=== PATIENT | male | born 1985 | race Caucasian/White ===

== ENCOUNTER 2019-02-10 23:30 | Day surgery (SDC) | payer OTHER ==
[2019-02-10] MEDS ORDERED: Ondansetron 4 MG/2 ML SDV IVPUSH ONE (23:39)
[2019-02-10] MEDS ORDERED: Sodium Chloride 0.9% 1,000 ML IV ONE (23:39)
[2019-02-10] MEDS ORDERED: Ketorolac 30 MG/ML SDV IVPUSH ONE (23:45)
--- NOTE | 2019-02-10 23:47 | EDM.PDOC ---
ED HPI GENERAL MEDICAL PROBLEM - General Chief Complaint: Abdominal Pain Stated Complaint: ABD PAIN Time Seen by Provider: 02/10/19 23:47 Source of Information: Reports: Patient - History of Present Illness INITIAL COMMENTS - FREE TEXT/NARRATIVE: HISTORY AND PHYSICAL: History of present illness: [A shunt presents with right lower quadrant pain for 36 hours no nausea vomiting chills sweats pain is 5 out of 10 nonradiating] Review of systems: As per history of present illness and below otherwise all systems reviewed and negative. Past medical history: As per history of present illness and as reviewed below otherwise noncontributory. Surgical history: As per history of present illness and as reviewed below otherwise noncontributory. Social history: No reported history of drug or alcohol abuse. Family history: As per history of present illness and as reviewed below otherwise noncontributory. Physical exam: HEENT: Atraumatic, normocephalic, pupils reactive, negative for conjunctival pallor or scleral icterus, mucous membranes moist, throat clear, neck supple, nontender, trachea midline. Lungs: Clear to auscultation, breath sounds equal bilaterally, chest nontender. Heart: S1S2, regular, negative for clicks, rubs, or JVD. Abdomen: Soft, nondistended, tender in right lower quadrant with guarding no rebound. Negative for masses or hepatosplenomegaly. Negative for costovertebral tenderness. Pelvis: Stable nontender. Genitourinary: Deferred. Rectal: Deferred. Extremities: Atraumatic, negative for cords or calf pain. Neurovascular unremarkable. Neuro: Awake, alert, oriented. Cranial nerves II through XII unremarkable. Cerebellum unremarkable. Motor and sensory unremarkable throughout. Exam nonfocal. Diagnostics: [EC CMP UA ] Therapeutics: [1 g Rocephin morphine 2 mg IV ] Impression: appendicitis definittive disposition and diagnosis as appropriate pending reevaluation and review of above. Right Lower Abdominal Pain Score (Numeric/FACES): 5 - Related Data Allergies Allergy/AdvReac Type Severity Reaction Status Date / Time No Known Allergies Allergy Verified 02/10/19 23:41 Home Meds: Home Meds . [No Known Home Meds] 02/10/19 [History] ED ROS GENERAL - Review of Systems Review Of Systems: See Below ED EXAM, GENERAL - Physical Exam Exam: See Below Course - Vital Signs Last Recorded V/S: Last Vital Signs Temp 98.3 F 02/10/19 23:42 Pulse 90 02/10/19 23:42 Resp 16 02/10/19 23:42 BP 164/92 H 02/10/19 23:42 Pulse Ox 98 02/10/19 23:42 - Orders/Labs/Meds Orders: Active Orders 24 hr Category Date Time Status UA RFX LEI AND CULT IF INDIC [URIN] Stat Lab 02/10/19 23:39 Ordered Labs: Laboratory Tests 02/10/19 02/10/19 Range/Units 23:50 23:50 WBC 12.13 H (4.0-11.0) K/uL RBC 5.07 (4.50-5.90) M/uL Hgb 14.8 (13.0-17.0) g/dL Hct 43.7 (38.0-50.0) % MCV 86.2 (80.0-98.0) fL MCH 29.2 (27.0-32.0) pg MCHC 33.9 (31.0-37.0) g/dL RDW Std Deviation 38.3 (28.0-62.0) fl RDW Coeff of Celso 12 (11.0-15.0) % Plt Count 194 (150-400) K/uL MPV 9.80 (7.40-12.00) fL Neut % (Auto) 68.6 (48.0-80.0) % Lymph % (Auto) 21.4 (16.0-40.0) % Ocean % (Auto) 8.4 (0.0-15.0) % Eos % (Auto) 1.4 (0.0-7.0) % Baso % (Auto) 0.2 (0.0-1.5) % Neut # (Auto) 8.3 H (1.4-5.7) K/uL Lymph # (Auto) 2.6 H (0.6-2.4) K/uL Ocean # (Auto) 1.0 H (0.0-0.8) K/uL Eos # (Auto) 0.2 (0.0-0.7) K/uL Baso # (Auto) 0.0 (0.0-0.1) K/uL Nucleated RBC % 0.0 /100WBC Nucleated RBCs # 0 K/uL Sodium 142 (136-148) mmol/L Potassium 3.9 (3.5-5.1) mmol/L Chloride 105 (98-107) mmol/L Carbon Dioxide 27.1 (21.0-32.0) mmol/L BUN 15 (7.0-18.0) mg/dL Creatinine 1.3 (0.8-1.3) mg/dL Est Cr Clr Drug Dosing 84.47 mL/min Estimated GFR (MDRD) > 60.0 ml/min Glucose 93 (74-106) mg/dL Calcium 9.1 (8.5-10.1) mg/dL Total Bilirubin 0.8 (0.2-1.0) mg/dL AST 27 (15-37) IU/L ALT 24 (14-63) IU/L Alkaline Phosphatase 81 (46-116) U/L Total Protein 8.0 (6.4-8.2) g/dL Albumin 4.4 (3.4-5.0) g/dL Globulin 3.6 (2.6-4.0) g/dL Albumin/Globulin Ratio 1.2 (0.9-1.6) Lipase 113 (73-393) U/L Meds: Medications Discontinued Medications Generic Name Dose Route Start Last Admin Trade Name Freq PRN Reason Stop Dose Admin Sodium Chloride 1,000 mls @ 999 mls/hr 02/10/19 23:39 02/10/19 23:50 Normal Saline IV 02/11/19 00:39 999 mls/hr STAT ONE Administration Iopamidol 100 ml 02/11/19 00:57 02/11/19 01:20 Isovue-370 (76%) IVPUSH 02/11/19 00:58 100 ml ONETIME ONE Administration Ketorolac Tromethamine 30 mg 02/10/19 23:45 02/11/19 00:00 Toradol IVPUSH 02/10/19 23:46 30 mg ONETIME ONE Administration Ondansetron HCl 8 mg 02/10/19 23:39 02/11/19 00:42 Zofran IVPUSH 02/10/19 23:40 Not Given ONETIME ONE Departure - Departure Time of Disposition: 01:46 Disposition: Refer to Observation Condition: Fair Clinical Impression: Acute appendicitis - Discharge Information Referrals: PCP,None [Primary Care Provider] - Forms: ED Department Discharge - My Orders Last 24 Hours: My Active Orders 02/10/19 23:39 UA RFX LEI AND CULT IF INDIC [URIN] Stat - Assessment/Plan Last 24 Hours: My Active Orders 02/10/19 23:39 UA RFX LEI AND CULT IF INDIC [URIN] Stat
[2019-02-11 00:28] LABS: CHLORIDE,CL 105 mmol/L (98-107); SODIUM,NA 142 mmol/L (136-148)
[2019-02-11] MEDS ORDERED: Iopamidol 755 Mg/ML 100 ML Bottle IVPUSH ONE (00:57)
--- NOTE | 2019-02-11 01:34 | CT ---
INDICATION: Right lower quadrant abdomen pain. TECHNIQUE: CT abdomen and pelvis acquired with 100 cc Isovue 370 IV contrast. COMPARISON: None. FINDINGS: Lower chest: Unremarkable. Liver: Unremarkable. Normal in size and attenuation. No masses. Gallbladder and bile ducts: Unremarkable. No stones or inflammation. No biliary dilatation. Pancreas: Unremarkable. No mass or inflammation. Spleen: Unremarkable. Normal in size. No masses. Adrenal glands: Unremarkable. No nodules. Kidneys: Unremarkable. No masses, stones, or hydronephrosis. GI tract: Unremarkable. Normal in caliber. No sign of mass or inflammation. Appendix is inflamed and dilated up to 10 mm. No sign of perforation or abscess. Vasculature: Unremarkable. Mesenteric arteries are patent. Lymph nodes: No lymphadenopathy. Omentum/Peritoneum/Abdominal Wall: Unremarkable. No sign of mass or infiltration. No free air or significant free fluid. Pelvis: Unremarkable. Bones: Unremarkable for age. IMPRESSION: Acute appendicitis without complication. Please note that all CT scans at this facility use dose modulation, iterative reconstruction, and/or weight-based dosing when appropriate to reduce radiation dose to as low as reasonably achievable. Dictated by Jose G Rich MD @ Feb 11 2019 1:29AM Signed by Dr. Jose G Rich @ Feb 11 2019 1:34AM
[2019-02-11] MEDS ORDERED: cefTRIAXone 1 GM in Premix Bag 1 BAG IV ONE (01:46)
[2019-02-11] MEDS ORDERED: Morphine 2 MG/ML Syringe IVPUSH ONE (01:46)
[2019-02-11] MEDS ORDERED: cefOXitin 2 GM in Premix Bag 1 BAG IV ONE (01:51)
[2019-02-11] MEDS ORDERED: Lactated Ringers 1,000 ML IV ONE (01:52)
[2019-02-11] MEDS ORDERED: Bupivacaine 25%/EPINEPHrine/PF 30 ML ONE (02:10)
--- NOTE | 2019-02-11 02:29 | PCM.PREANE ---
Preanesthetic Assessment - Anesthesia/Transfusion/Family Hx Anesthesia History: No Prior Anesthesia Family History of Anesthesia Reaction: No Transfusion History: No Prior Transfusion(s) Intubation History: Unknown - Review of Systems General: No Symptoms Pulmonary: No Symptoms Cardiovascular: No Symptoms Gastrointestinal: No Symptoms Neurological: No Symptoms Other: Reports: None - Physical Assessment NPO Status Date: 02/10/19 NPO Status Time: 11:00 Pulse: 88 O2 Sat by Pulse Oximetry: 100 Respiratory Rate: 18 Blood Pressure: 122/74 Temperature: 38.6 C Vital Signs: Last Vital Signs Temp 36.9 C 02/11/19 01:59 Pulse 89 02/11/19 01:59 Resp 18 02/11/19 01:59 BP 153/89 H 02/11/19 01:59 Pulse Ox 100 02/11/19 01:59 Height: 1.8 m Weight: 83.915 kg ASA Class: 1E Mental Status: Alert & Oriented x3 Airway Class: Mallampati = 1 Dentition: Reports: Normal Dentition Thyro-Mental Finger Breadths: 3 Mouth Opening Finger Breadths: 3 ROM/Head Extension: Full Lungs: Clear to Auscultation Cardiovascular: Regular Rate - Lab Values: Laboratory Last Values WBC 12.13 K/uL (4.0-11.0) H 02/10/19 23:50 RBC 5.07 M/uL (4.50-5.90) 02/10/19 23:50 Hgb 14.8 g/dL (13.0-17.0) 02/10/19 23:50 Hct 43.7 % (38.0-50.0) 02/10/19 23:50 MCV 86.2 fL (80.0-98.0) 02/10/19 23:50 MCH 29.2 pg (27.0-32.0) 02/10/19 23:50 MCHC 33.9 g/dL (31.0-37.0) 02/10/19 23:50 RDW Std Deviation 38.3 fl (28.0-62.0) 02/10/19 23:50 RDW Coeff of Celso 12 % (11.0-15.0) 02/10/19 23:50 Plt Count 194 K/uL (150-400) 02/10/19 23:50 MPV 9.80 fL (7.40-12.00) 02/10/19 23:50 Neut % (Auto) 68.6 % (48.0-80.0) 02/10/19 23:50 Lymph % (Auto) 21.4 % (16.0-40.0) 02/10/19 23:50 [place] % (Auto) 8.4 % (0.0-15.0) 02/10/19 23:50 Eos % (Auto) 1.4 % (0.0-7.0) 02/10/19 23:50 Baso % (Auto) 0.2 % (0.0-1.5) 02/10/19 23:50 Neut # (Auto) 8.3 K/uL (1.4-5.7) H 02/10/19 23:50 Lymph # (Auto) 2.6 K/uL (0.6-2.4) H 02/10/19 23:50 [place] # (Auto) 1.0 K/uL (0.0-0.8) H 02/10/19 23:50 Eos # (Auto) 0.2 K/uL (0.0-0.7) 02/10/19 23:50 Baso # (Auto) 0.0 K/uL (0.0-0.1) 02/10/19 23:50 Nucleated RBC % 0.0 /100WBC 02/10/19 23:50 Nucleated RBCs # 0 K/uL 02/10/19 23:50 Sodium 142 mmol/L (136-148) 02/10/19 23:50 Potassium 3.9 mmol/L (3.5-5.1) 02/10/19 23:50 Chloride 105 mmol/L (98-107) 02/10/19 23:50 Carbon Dioxide 27.1 mmol/L (21.0-32.0) 02/10/19 23:50 BUN 15 mg/dL (7.0-18.0) 02/10/19 23:50 Creatinine 1.3 mg/dL (0.8-1.3) 02/10/19 23:50 Est Cr Clr Drug Dosing 84.47 mL/min 02/10/19 23:50 Estimated GFR (MDRD) > 60.0 ml/min 02/10/19 23:50 Glucose 93 mg/dL (74-106) 02/10/19 23:50 Calcium 9.1 mg/dL (8.5-10.1) 02/10/19 23:50 Total Bilirubin 0.8 mg/dL (0.2-1.0) 02/10/19 23:50 AST 27 IU/L (15-37) 02/10/19 23:50 ALT 24 IU/L (14-63) 02/10/19 23:50 Alkaline Phosphatase 81 U/L (46-116) 02/10/19 23:50 Total Protein 8.0 g/dL (6.4-8.2) 02/10/19 23:50 Albumin 4.4 g/dL (3.4-5.0) 02/10/19 23:50 Globulin 3.6 g/dL (2.6-4.0) 02/10/19 23:50 Albumin/Globulin Ratio 1.2 (0.9-1.6) 02/10/19 23:50 Lipase 113 U/L (73-393) 02/10/19 23:50 - Allergies Allergies/Adverse Reactions: Allergies Allergy/AdvReac Type Severity Reaction Status Date / Time No Known Allergies Allergy Verified 02/10/19 23:41 - Blood Blood Available: No - Anesthesia Plan Pre-Op Medication Ordered: None - Acknowledgements Anesthesia Type Planned: General Anesthesia Pt an Appropriate Candidate for the Planned Anesthesia: Yes Alternatives and Risks of Anesthesia Discussed w Pt/Guardian: Yes Pt/Guardian Understands and Agrees with Anesthesia Plan: Yes Additional Comments: Discussed. ? answered. Acceptable patient for GAET. PreAnesthesia Questionnaire Cardiovascular History: Reports: None Respiratory History: Reports: None Gastrointestinal History: Reports: None Genitourinary History: Reports: None Musculoskeletal History: Reports: None Neurological History: Reports: None Psychiatric History: Reports: None Hematologic History: Reports: None Oncologic (Cancer) History: Reports: None Dermatologic History: Reports: None - Infectious Disease History Infectious Disease History: Reports: Chicken Pox - Past Surgical History HEENT Surgical History: Reports: Oral Surgery - SUBSTANCE USE Smoking Status *Q: Never Smoker Recreational Drug Use History: No - HOME MEDS Home Medications: Home Meds . [No Known Home Meds] 02/10/19 [History] - CURRENT (IN HOUSE) MEDS Current Meds: Current Medications Lactated Ringer's (Ringers, Lactated) 1,000 mls @ 150 mls/hr IV .BOLUS ONE Stop: 02/11/19 08:31 Last Admin: 02/11/19 02:03 Dose: 150 mls/hr Discontinued Medications Sodium Chloride (Normal Saline) 1,000 mls @ 999 mls/hr IV STAT ONE Stop: 02/11/19 00:39 Last Admin: 02/10/19 23:50 Dose: 999 mls/hr Ceftriaxone Sodium/Dextrose 1 (gm/ Premix) 50 mls @ 100 mls/hr IV ONETIME ONE Stop: 02/11/19 02:15 Last Admin: 02/11/19 02:15 Dose: Not Given Cefoxitin Sodium 2 gm/ Premix 50 mls @ 100 mls/hr IV ONETIME ONE Stop: 02/11/19 02:20 Last Admin: 02/11/19 02:04 Dose: 100 mls/hr Bupivacaine HCl/Epinephrine Bitart (Sensorc Mpf 0.25%-Epi [id number]) Confirm Administered Dose 30 mls @ as directed .ROUTE .STK-MED ONE Stop: 02/11/19 02:11 Iopamidol (Isovue-370 (76%)) 100 ml IVPUSH ONETIME ONE Stop: 02/11/19 00:58 Last Admin: 02/11/19 01:20 Dose: 100 ml Ketorolac Tromethamine (Toradol) 30 mg IVPUSH ONETIME ONE Stop: 02/10/19 23:46 Last Admin: 02/11/19 00:00 Dose: 30 mg Morphine Sulfate (Morphine) 2 mg IVPUSH ONETIME ONE Stop: 02/11/19 01:47 Last Admin: 02/11/19 02:06 Dose: Not Given Ondansetron HCl (Zofran) 8 mg IVPUSH ONETIME ONE Stop: 02/10/19 23:40 Last Admin: 02/11/19 00:42 Dose: Not Given
[2019-02-11] MEDS ORDERED: Sugammadex Sodium 200 MG/2 ML VIAL ONE (02:30)
[2019-02-11] MEDS ORDERED: Glycopyrrolate 0.2 MG/ML SDV ONE (02:45)
[2019-02-11] MEDS ORDERED: Ketorolac 30 MG/ML SDV ONE (02:45)
[2019-02-11] MEDS ORDERED: Ondansetron 4 MG/2 ML SDV ONE (02:45)
[2019-02-11] MEDS ORDERED: Propofol 200 MG/20 ML SDV ONE (02:46)
[2019-02-11] MEDS ORDERED: Midazolam 1 MG/ML 2 ML SDV ONE (02:46)
[2019-02-11] MEDS ORDERED: fentaNYL 100 MCG/2 ML SDV ONE ×2 (02:46→03:50)
[2019-02-11] MEDS ORDERED: Rocuronium 100 MG/10 ML Syringe ONE (02:46)
[2019-02-11] MEDS ORDERED: Morphine 10 MG/ML Syringe ONE (02:47)
[2019-02-11] MEDS ORDERED: Desflurane 240 ML Bottle ONE (04:33)
--- NOTE | 2019-02-11 04:49 | PCM.POSTAN ---
POST ANESTHESIA ASSESSMENT - MENTAL STATUS Mental Status: Alert - VITAL SIGNS Pulse Rate: 68 SaO2: 99 Resp Rate: 16 Blood Pressure: 140/80 - RESPIRATORY Respiratory Status: Respiratory Rate WNL - CARDIOVASCULAR CV Status: Pulse Rate WNL - GASTROINTESTINAL GI Status: No Symptoms - PAIN Pain Score: 0 - POST OP HYDRATION Hydration Status: Adequate & Stable (Doig well. Ready for transfer to floor.)
--- NOTE | 2019-02-11 04:49 | PCM.OPNOTE ---
- General Post-Op/Procedure Note Date of Surgery/Procedure: 02/11/19 Operative Procedure(s): lap appendectomy Findings: acute appendicitis, middle 1/3 severely grew together with surrounding omentum and TI cw chronic; appendix hyperemic and indurated, gross perf not observed; [id number] Pre Op Diagnosis: acute appendicitis Post-Op Diagnosis: Same Anesthesia Technique: General ET Tube Primary Surgeon: Yonathan vAina Pathology: sent Complications: None Condition: Good Free Text/Narrative:: Intake & Output 02/10/19 02/10/19 02/11/19 14:59 22:59 06:59 Output Total 200 Balance -200
--- NOTE | 2019-02-11 04:51 | PCM.SN ---
- Free Text/Narrative Note: pt seen, chart reviewed; ct +ve appendicitis, wbc 12, pt would benefit from timely appendectomy; rb dw pt re bleeding/infection/damage to nearby organs/ postop course; pt concurred and proceed; ivf/abx/consent and proceed w surgery [id number]
[2019-02-11] MEDS ORDERED: Acetaminophen/oxyCODONE 325-5 MG Tab PO PRN (04:52)
[2019-02-11] MEDS ORDERED: Morphine 2 MG/ML Syringe IVPUSH PRN (04:52)
[2019-02-11] MEDS ORDERED: Ondansetron 4 MG/2 ML SDV IVPUSH PRN (04:54)
[2019-02-11] MEDS ORDERED: Lactated Ringers 1,000 ML IV SCH (05:00)
--- NOTE | 2019-02-11 08:36 | CONS ---
DATE OF CONSULTATION: 02/11/2019 DATE OF : 1985 PRIMARY CARE PHYSICIAN: None PCP Consult was called. The patient was seen shortly after. CONCERNING QUESTION: Acute appendicitis. HISTORY OF PRESENT ILLNESS: The patient is a 33-year-old gentleman, complaining of over 24-hour history of acute onset of periumbilical pain, subsequently migrated to the right lower quadrant, and sought help in the emergency room. CAT scan shows image consistent with acute appendicitis. Surgery was then consulted. The patient currently remarked the pain as about 4 and denied prior episode. Denied temperature or diarrhea. PAST MEDICAL HISTORY: Significant for no diabetes, ME, CVA, or hypertension. PAST SURGICAL HISTORY: None. ALLERGIES: Refer to nursing for details. MEDICATIONS: Refer to nursing for details. REVIEW OF SYSTEMS: Same as history of present illness. FAMILY HISTORY: Noncontributory. PHYSICAL EXAMINATION: GENERAL: A very pleasant gentleman, even smiled to the doctor, in no acute distress, and getting in and out of the bed very comfortably. HEENT: Normocephalic, atraumatic. Sclerae anicteric. LUNGS: Clear to auscultation. HEART: Regular rate and rhythm. ABDOMEN: Soft, nondistended. No pulsating tender midline abdominal structure. No surgical scar. No hernia. Exquisite tenderness well localized on the McBurney point. LABORATORY DATA: White count 12,000. CAT scan as alluded above. IMPRESSION: Acute appendicitis. PLAN: Would benefit from timely surgical intervention. Risks and benefits discussed with the patient including bleeding, infection and the possibility of leaving wound open, if perforated, and also possible damage to nearby organs. The patient concurred to proceed as planned. We will start with IV fluid lactated Ringer 150 and give Mefoxin 2 g IV and proceed with surgery, and the patient also needs to be shaved. As always, thank you for the kind referral. SRINIVASA / RHODA /[id number]
--- NOTE | 2019-02-11 10:00 | OR ---
SURGEON: Yonathan Avina MD DATE OF PROCEDURE: 02/11/2019 PREOPERATIVE DIAGNOSIS: Acute appendicitis. POSTOPERATIVE DIAGNOSIS: Acute appendicitis. PROCEDURE PERFORMED: Laparoscopic appendectomy. COMPLICATIONS: None. FINDING: The appendix is very long and slender and closely about 7 cm long. In the middle part, the middle 50% is all interacting with surrounding organs consistent with chronic situation and also hyperemic and hardened consistent with appendicitis. Gross perforation is not observed. PROCEDURE IN DETAIL: The patient was taken to the operating room and placed in the supine position. Following induction of general endotracheal anesthesia, the patient's abdomen was prepped and draped in the sterile fashion. A time-out has been called. The patient was identified. The procedure was identified. The antibiotics were identified. The procedure then proceeded. The abdomen was prepped and draped in a standard fashion. After assessment of appropriate landmarks, a 12 millimeter trocar was inserted supraumbilically using Optiview and pneumoperitoneum was then achieved. This was followed with placement of 5 millimeter port in the right upper quadrant and another 5 millimeter port infraumbilically. The camera was inserted supraumbilical site and two laparoscopic Ronda retractors were then inserted through the other two sites. Following the cecum, the appendix was located. The appendix was then lifted up, and using a GI stapler the appendix was amputated at the base. And using the GI stapler, the mesoappendix was then amputated. The appendix was retrieved by an endoscopic bag and sent for pathologist. This was then followed by re-insertion of the camera to examine the staple line, and hemostasis. The trocars were then removed. The umbilical site was closed with skin triny and Dermabond; the other 2 5 mm port sites were closed with skin triny and Dermabond, followed by appropriate dressing. The patient was then awakened, extubated, and transferred to the recovery room in hemodynamically stable condition. Prior to closing, sponge count and instrument count was correct. The patient tolerated the procedure well. There were no intraoperative complications. Dr. Avina was present throughout the whole procedure. As always, thank you for the kind referral. SRINIVASA / RHODA /[id number]
--- NOTE | 2019-02-11 10:32 | PCM48HPAN ---
Post Anesthesia Note - EVALUATION WITHIN 48HRS OF ANESTHETIC Vital Signs in Normal Range: Yes Patient Participated in Evaluation: Yes Respiratory Function Stable: Yes Airway Patent: Yes Cardiovascular Function Stable: Yes Hydration Status Stable: Yes Pain Control Satisfactory: Yes Nausea and Vomiting Control Satisfactory: Yes Mental Status Recovered: Yes Pulse Rate: 68 Resp Rate: 16 Temperature: 38.6 C Blood Pressure: 140/80 - COMMENTS/OBSERVATIONS Free Text/Narrative:: Doing well. Will be discharged when able to void. No problems noted.
== END 2019-02-11 14:00 | disposition home or self-care (01) ==
LOC: MW.ED 23:30 → MW.SDS 02-11 01:52 → MW.MS 02-11 04:38 → MW.SDS 02-11 14:00
PROVIDERS: ATTEND Surgery
DX: K35.80 Unspecified acute appendicitis (principal)
CPT/HCPCS: 36415; 44970; 74177; 80053; 81001; 83690; 85025; 96361; 96374; 99285; A4217; A9270; C1776; J0131; J0694; J1885; J2250; J2270; J2405; J2704; J3010; J3490; J7040; J7120; Q9967; 00840; J0330